=== PATIENT | male | born 1975 | race Caucasian/White ===

== ENCOUNTER 2017-05-24 19:10 | Emergency (ER) | payer OTHER ==
[2017-05-24 21:45] VITALS: BP 145/92
--- NOTE | 2017-05-24 21:48 | ED ---
Abdominal Pain/Male - HPI Summary HPI Summary: Patient presents with left sided groin pain which has been worsening x 5 days. Denies injury or strain to the area. He states he lifts heavy objects all day for his job and pain is worse while lifting or straining. He denies color or temperature changes to the area. He has never had a hernia before. Patient is obese, is a smoker, but denies health problems. Denies urinary symptoms. Pain is 8/10, constant, worse with lifting and better with rest. Denies taking medication for pain. - History of Current Complaint Chief Complaint: EDGeneral Stated Complaint: GROIN PAIN,CHEST PAIN Time Seen by Provider: 05/24/17 20:57 Hx Obtained From: Patient Timing: Constant Severity Initially: Moderate Severity Currently: Moderate Pain Intensity: 9 Pain Scale Used: 0-10 Numeric Location: Groin Radiates: No Character: Cramping, Tearing Aggravating Factor(s): Movement Alleviating Factor(s): Position Associated Signs And Symptoms: Positive: Negative - Risk Factors Testicular Torsion: Prior Torsion Cardiac Risk Factors: Negative - Allergies/Home Medications Allergies/Adverse Reactions: Allergies Allergy/AdvReac Type Severity Reaction Status Date / Time No Known Allergies Allergy Verified 12/29/14 19:50 PMH/Surg Hx/FS Hx/Imm Hx Previously Healthy: Yes - Surgical History Surgery Procedure, Year, and Place: LEFT KNEE - Immunization History Hx Pertussis Vaccination: No Immunizations Up to Date: Unable to Obtain/Confirm Infectious Disease History: No Infectious Disease History: Denies: Traveled Outside the [place] in Last 30 Days - Social History Occupation: Employed Full-time Lives: With Family Alcohol Use: None Hx Substance Use: No Substance Use Type: Reports: None Hx Tobacco Use: Yes Smoking Status (MU): Heavy Every Day Tobacco Smoker Review of Systems Constitutional: Negative Eyes: Negative Cardiovascular: Negative Respiratory: Negative Positive: no symptoms reported, see HPI, other - left sided groin pain Musculoskeletal: Negative Neurological: Negative Psychological: Normal All Other Systems Reviewed And Are Negative: Yes Physical Exam Triage Information Reviewed: Yes Vital Signs On Initial Exam: Initial Vitals Temp Pulse Resp BP Pulse Ox 97.4 F 91 18 147/88 98 05/24/17 19:26 05/24/17 19:26 05/24/17 19:26 05/24/17 19:26 05/24/17 19:26 Vital Signs Reviewed: Yes Appearance: Positive: Well-Appearing, Well-Nourished Skin: Positive: Warm, Skin Color Reflects Adequate Perfusion Head/Face: Positive: Normal Head/Face Inspection Eyes: Positive: EOMI, AAMIR, Conjunctiva Clear Neck: Positive: Supple, Nontender, No Lymphadenopathy Respiratory/Lung Sounds: Positive: Clear to Auscultation, Breath Sounds Present Cardiovascular: Positive: Normal, RRR, Pulses are Symmetrical in both Upper and Lower Extremities Male Genital Exam: Positive: normal genitalia, hernia mass, other - left sided indirect inguinal hernia without incarceration or strangulation Musculoskeletal: Positive: Strength/ROM Intact Neurological: Positive: Sensory/Motor Intact, Alert, Oriented to Person Place, Time, Speech Normal Psychiatric: Positive: Normal, Affect/Mood Appropriate AVPU Assessment: Alert - [place] Coma Scale Best Eye Response: 4 - Spontaneous Best Motor Response: 6 - Obeys Commands Best Verbal Response: 5 - Oriented Diagnostics - Vital Signs Vital Signs Temp Pulse Resp BP Pulse Ox 05/24/17 21:41 97.4 F 86 16 145/92 99 05/24/17 19:26 97.4 F 91 18 147/88 98 - Laboratory Lab Statement: Any lab studies that have been ordered have been reviewed, and results considered in the medical decision making process. Abdominal Pain Fem Course/Dx - Course Course Of Treatment: Patient presents with left sided indirect inguinal hernia without incarceration or strangulation, without color or temperature changes. Hernia is reducible, small and reduced with effect in ED. Patient is OK with discharge and will follow up with surgery if any symptoms persist. Return precautions given. - Diagnoses Differential Diagnosis/HQI/PQRI: Constipation, Testicular Torsion Provider Diagnoses: Indirect inguinal hernia Discharge - Discharge Plan Condition: Stable Disposition: HOME Patient Education Materials: Inguinal Hernia (ED) Forms: *Work Release Referrals: Shaji Sexton MD [Medical Doctor] - Reagan STALEY,Kieran Colbert [Primary Care Provider] - Additional Instructions: Follow up with PCP I have given you a referral to a surgeon if this becomes worse
== END 2017-05-24 21:52 | disposition home or self-care (01) ==
LOC: ED 19:10
DX: K40.90 Unilateral inguinal hernia, without obstruction or gangrene, not specified as recurrent (principal); F17.210 Nicotine dependence, cigarettes, uncomplicated
CPT/HCPCS: 99282